=== PATIENT | female | born 1940 | race Caucasian/White ===

== ENCOUNTER → 2017-02-22 | Outpatient (REF) | payer MEDICARE, BC ==
[~2017-02-22] MED LIST: /WARF5TA PO; ACET65TA PO; AROMASIN PO; ATACAND PO; ATEN50TA2 OR; BIMATOPROST OU; FLON0.05; HCTZ PO; MIRALEX PO; NISOLDIPINE PO; PERC5TAB8 PO; PERC7.5T8 PO; SENO8.6T5 PO; VIACTIVE PO; WARF5VL PO; [UNRECOGNIZED DRUG - OTHER] INJ
== END ==
LOC: M LAB REF 16:41
PROVIDERS: ATTEND Internal Medicine Medical Oncology
DX: C50.919 Malignant neoplasm of unspecified site of unspecified female breast (principal)

== ENCOUNTER → 2017-03-22 | Outpatient (REF) | payer MEDICARE, BC | LOC: M LAB REF 13:18 | PROVIDERS: ATTEND Internal Medicine Medical Oncology | DX: C50.919 Malignant neoplasm of unspecified site of unspecified female breast (principal) ==